=== PATIENT | female | born 2000 | race Two or more races ===

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

== ENCOUNTER 2019-11-21 14:00 | Observation (INO) | payer MEDICAID ==
[~2019-11-21] VITALS: Ht 157.5 cm; Wt 98.4 kg
[2019-11-21] MEDS ORDERED: LACTATED RINGER'S 1,000 ML IV ONE (14:23)
[2019-11-21] MEDS ORDERED: PREN-96 PO (14:30)
[2019-11-21 14:45] LABS: Basophils # (auto) 0.1 10 ^3/uL (0-0.2); Basophils % (auto) 0.6 % (0.0-2.0); Eosinophils # (auto) 0 10 ^3/uL (0-0.8); Eosinophils % (auto) 0.3 % (0.0-7.0); Hematocrit 34.2 % (36.0-46.0); Hemoglobin 11.3 g/dL (12.2-16.2); Lymphocytes # (auto) 0.9 10 ^3/uL (0.4-5.4); Lymphocytes % (auto) 8.2 % (10.0-50.0); Mean Corpuscular Hemoglobin 27.3 pg (28.0-32.0); Mean Corpuscular Hgb Conc. 33.1 g/dL (32.0-36.0); Mean Corpuscular Volume 82.4 fL (80.0-100.0); Monocytes # (auto) 0.7 10 ^3/uL (0-1.3); Neutrophils # (auto) 9.4 10 ^3/uL (1.6-8.6); Neutrophils % (auto) 84.9 % (37.0-80.0); Platelet Count (auto) 262 10^3/uL (140-450); Red Blood Cells 4.15 10^6/uL (4.0-5.20); Red Cell Distribution Width 15.2 % (11.8-14.3); White Blood Cell 11.1 10^3/uL (4.4-10.8)
[2019-11-21 15:00] LABS: Partial Thromboplastin Time 27.3 sec (23.64-32.05)
[2019-11-21 15:09] LABS: Albumin 2.5 g/dL (3.4-5.0); Potassium 3.9 mmol/L (3.5-5.1); Uric Acid 5.2 mg/dL (2.6-6.0)
[2019-11-21 15:12] LABS: BUN/Creatinine Ratio 20.3; Bilirubin, Total 0.9 mg/dL (0.2-1.0); Total Protein 7.2 g/dL (6.4-8.2)
== END 2019-11-21 15:30 | disposition home or self-care (01) | DRG 566 ==
LOC: LDRP 14:00
PROVIDERS: ADMIT Obstetrics & Gynecology; ATTEND Obstetrics & Gynecology
DX: O99.613 Diseases of the digestive system complicating pregnancy, third trimester (principal); K52.9 Noninfective gastroenteritis and colitis, unspecified; Z3A.38 38 weeks gestation of pregnancy
CPT/HCPCS: 36415; 59025; 80053; 81002; 84550; 85025; 85610; 85730; 96360; G0378; 96361

== ENCOUNTER 2019-11-24 09:53 | Observation (INO) | payer MEDICAID ==
[~2019-11-24 09:53] MED LIST: PREN-96 PO
[2019-11-24 11:03] LABS: Protein, Urine 18.2 mg/dL (0.0-11.9)
[2019-11-24 11:05] LABS: 24 Hr. Total Protein, Urine 227.5 mg/24 Hr (<149.1)
== END 2019-11-24 11:16 | disposition home or self-care (01) | DRG 566 ==
LOC: LDRP 09:53
PROVIDERS: ADMIT Obstetrics & Gynecology; ATTEND Obstetrics & Gynecology
DX: O13.3 Gestational [pregnancy-induced] hypertension without significant proteinuria, third trimester (principal); Z3A.38 38 weeks gestation of pregnancy
CPT/HCPCS: 59025; 81002; 84156; G0378

== ENCOUNTER 2019-11-29 12:20 | Observation (INO) | payer MEDICAID ==
[2019-11-29 13:00] LABS: Basophils # (auto) 0.1 10 ^3/uL (0-0.2); Basophils % (auto) 0.5 % (0.0-2.0); Eosinophils # (auto) 0.1 10 ^3/uL (0-0.8); Hemoglobin 11.2 g/dL (12.2-16.2)
[2019-11-29 13:02] LABS: Eosinophils % (auto) 0.7 % (0.0-7.0); Hematocrit 34.6 % (36.0-46.0); Lymphocytes # (auto) 2.2 10 ^3/uL (0.4-5.4); Lymphocytes % (auto) 18.2 % (10.0-50.0); Mean Corpuscular Hemoglobin 26.5 pg (28.0-32.0); Mean Corpuscular Hgb Conc. 32.3 g/dL (32.0-36.0); Mean Corpuscular Volume 82.2 fL (80.0-100.0); Monocytes % (auto) 8.1 % (0.0-12.0); Neutrophils # (auto) 8.7 10 ^3/uL (1.6-8.6); Neutrophils % (auto) 72.5 % (37.0-80.0); Nucleated Red Blood Cells % 0.1 %; Platelet Count (auto) 267 10^3/uL (140-450); Red Blood Cells 4.21 10^6/uL (4.0-5.20); Red Cell Distribution Width 15.8 % (11.8-14.3)
[2019-11-29 13:04] LABS: Urine WBC None Seen /hpf (0 - 5)
[2019-11-29 13:17] LABS: INR 0.95 (0.9-1.15); Partial Thromboplastin Time 26.2 sec (23.64-32.05)
[2019-11-29 13:23] LABS: Urine Bacteria NONE SEEN /hpf (None Seen); Urine Blood Negative /uL (Negative); Urine Specific Gravity 1.005 (1.001-1.035)
[2019-11-29 13:23] LABS: Albumin 2.4 g/dL (3.4-5.0); Calcium 8.6 mg/dL (8.5-10.1); Potassium 4.2 mmol/L (3.5-5.1); Uric Acid 4.5 mg/dL (2.6-6.0)
[2019-11-29 13:26] LABS: BUN/Creatinine Ratio 13.2; Bilirubin, Total 0.4 mg/dL (0.2-1.0); Total Protein 6.7 g/dL (6.4-8.2)
== END 2019-11-29 14:05 | disposition home or self-care (01) | DRG 566 ==
LOC: LDRP 12:20
PROVIDERS: ADMIT Specialist; ATTEND Specialist
DX: O62.9 Abnormality of forces of labor, unspecified (principal); Z3A.39 39 weeks gestation of pregnancy
CPT/HCPCS: 36415; 59025; 80053; 81001; 81002; 84550; 85025; 85610; 85730; G0378

== ENCOUNTER 2019-12-01 15:07 | Observation (INO) | payer MEDICAID | END 2019-12-01 16:55 | disposition home or self-care (01) | DRG 566 | LOC: LDRP 15:07 | PROVIDERS: ADMIT Specialist; ATTEND Specialist | DX: O13.3 Gestational [pregnancy-induced] hypertension without significant proteinuria, third trimester (principal); O62.9 Abnormality of forces of labor, unspecified; Z3A.39 39 weeks gestation of pregnancy | CPT/HCPCS: 59025; 76818; 81002; G0378 ==

== ENCOUNTER 2019-12-03 09:00 | Observation (INO) | payer MEDICAID | END 2019-12-03 10:04 | disposition home or self-care (01) | DRG 566 | LOC: LDRP 09:00 | PROVIDERS: ADMIT Specialist; ATTEND Specialist | DX: O62.9 Abnormality of forces of labor, unspecified (principal); Z3A.39 39 weeks gestation of pregnancy | CPT/HCPCS: 59025; 81002; G0378 ==

== ENCOUNTER 2019-12-03 19:32 | Observation (INO) | payer MEDICAID | END 2019-12-03 21:17 | disposition home or self-care (01) | DRG 566 | LOC: LDRP 19:32 | PROVIDERS: ADMIT Specialist; ATTEND Specialist | DX: O42.92 Full-term premature rupture of membranes, unspecified as to length of time between rupture and onset of labor (principal); O13.3 Gestational [pregnancy-induced] hypertension without significant proteinuria, third trimester; Z3A.39 39 weeks gestation of pregnancy | CPT/HCPCS: 59025; 76815; 81002; 84112; G0378; Q0114 ==

== ENCOUNTER 2019-12-04 09:55 | Inpatient (IN) | payer MEDICAID ==
[~2019-12-04] VITALS: Ht 157.5 cm; Wt 99.8 kg
[2019-12-04] MEDS ORDERED: CARBOPROST TROMETHAMINE 250 MCG/1ML VIAL IM PRN (10:45)
[2019-12-04] MEDS ORDERED: LACTATED RINGER'S 1,000 ML IV SCH (10:45)
[2019-12-04] MEDS ORDERED: LACT. RINGERS/OXYTOCIN 20UNITS 1,000 ML IV SCH (10:45)
[2019-12-04] MEDS ORDERED: DERMOPLAST 60ML BOTTLE TOP PRN (10:45)
[2019-12-04] MEDS ORDERED: BUTORPHANOL TARTRATE 2 MG/1 ML VIAL IV PRN (10:45)
[2019-12-04] MEDS ORDERED: METHYLERGONOVINE MALEATE 0.2 MG/ML AMP IM PRN (10:45)
[2019-12-04] MEDS ORDERED: LIDOCAINE 2%HCL (LOCAL ANESTH.) INJ 20ML MDV ID ONE (10:45)
[2019-12-04] MEDS ORDERED: PHISODERM TOP SOLN 240ML BTL TOP PRN (10:45)
[2019-12-04] MEDS ORDERED: WITCH HAZEL-GLYCERIN PAD TOP PRN (10:45)
[2019-12-04 11:17] LABS: Basophils # (auto) 0.1 10 ^3/uL (0-0.2); Basophils % (auto) 0.7 % (0.0-2.0); Eosinophils # (auto) 0 10 ^3/uL (0-0.8); Hemoglobin 11.3 g/dL (12.2-16.2); Mean Corpuscular Volume 81.7 fL (80.0-100.0)
[2019-12-04 11:19] LABS: Hematocrit 34.6 % (36.0-46.0); Lymphocytes # (auto) 1.4 10 ^3/uL (0.4-5.4); Lymphocytes % (auto) 8.4 % (10.0-50.0); Mean Corpuscular Hemoglobin 26.8 pg (28.0-32.0); Mean Corpuscular Hgb Conc. 32.7 g/dL (32.0-36.0); Monocytes # (auto) 0.8 10 ^3/uL (0-1.3); Monocytes % (auto) 4.5 % (0.0-12.0); Neutrophils % (auto) 86.4 % (37.0-80.0); Platelet Count (auto) 269 10^3/uL (140-450); Red Blood Cells 4.24 10^6/uL (4.0-5.20); Red Cell Distribution Width 15.5 % (11.8-14.3); White Blood Cell 17.3 10^3/uL (4.4-10.8)
[2019-12-04 11:32] LABS: INR 0.96 (0.9-1.15); Partial Thromboplastin Time 26.8 sec (23.64-32.05)
[2019-12-04] MEDS: ceFAZolin 1GM/50ML 50 ML IV SCH ×2 (11:34→19:56)
[2019-12-04 11:37] LABS: Albumin 2.6 g/dL (3.4-5.0); Calcium 8.8 mg/dL (8.5-10.1); Potassium 3.9 mmol/L (3.5-5.1)
[2019-12-04 11:41] LABS: BUN/Creatinine Ratio 16.1; Total Protein 7.2 g/dL (6.4-8.2)
[2019-12-04] MEDS ORDERED: fentaNYL 200mCg/100ml W ROPIVA 100 ML EPI ONE (12:21)
[2019-12-04] MEDS ORDERED: LIDOCAINE HCL 2 %PF INJ 10ML AMP IJ ONE ×2 (12:22→13:00)
[2019-12-04] MEDS ORDERED: ePHEDrine SULFATE 50 MG/ML AMP ONE (12:22)
[2019-12-04] MEDS ORDERED: fentaNYL CITRATE 100 MCG/2 ML VL ONE (12:22)
[2019-12-04] MEDS ORDERED: LACTATED RINGER'S 1,000 ML IV ONE (12:51)
[2019-12-04] MEDS ORDERED: ePHEDrine SULFATE 50 MG/ML AMP IV ONE (13:00)
[2019-12-04] MEDS ORDERED: fentaNYL 200mCg/100ml W ROPIVA 100 ML EPI SCH (13:00)
[2019-12-04] MEDS ORDERED: NALOXONE HCL 0.4 MG/ML VIAL IV ONE (13:00)
[2019-12-04] MEDS ORDERED: fentaNYL CITRATE 100 MCG/2 ML VL IV ONE (13:00)
[2019-12-04] MEDS ORDERED: IBUPROFEN 600 MG TAB PO PRN (16:15)
--- NOTE | 2019-12-04 18:45 | NUR ---
Ambulation: Patient OOB with standby assistance by RN. Patient ambulated to bathroom with steady gait. Patient able to void 300ml without difficulty. [facility]icare teaching provided with returned demonstration by patient. Clean gown provided and bed linen changed. Patient ambulated back to bed with steady gait and no distress noted.
[2019-12-04 19:00] VITALS: BP 135/71
[2019-12-04 21:27] LABS: Urine Bacteria NONE SEEN /hpf (None Seen); Urine Blood 3+ /uL (Negative); Urine Mucus FEW (None Seen); Urine Specific Gravity 1.008 (1.001-1.035); Urine WBC 25 /hpf (0 - 5)
[2019-12-04 21:30] LABS: Alcohol, Urine < 3.0 mg/dL (0-10); Amphetamine Screen, Urine NEGATIVE (NEGATIVE); Barbiturate Scree,Urine NEGATIVE (NEGATIVE); Benzodiazephine Screen, Urine NEGATIVE (NEGATIVE); Cannabinoid Screen, Urine NEGATIVE (NEGATIVE); Cocaine Screen, Urine NEGATIVE (NEGATIVE); Opiate Scree,Urine NEGATIVE (NEGATIVE); Phencyclidine Screen, Urine NEGATIVE (NEGATIVE)
--- NOTE | 2019-12-04 22:00 | NUR ---
second void 500ml
[2019-12-04 23:00] VITALS: BP 133/72
[2019-12-05 03:00] VITALS: BP 119/56
[2019-12-05] MEDS: ceFAZolin 1GM/50ML 50 ML IV SCH (06:05)
[2019-12-05 07:15] VITALS: BP 129/68
[2019-12-05 11:23] VITALS: BP 131/62
[2019-12-05 15:12] VITALS: BP 120/64
[2019-12-05 19:00] VITALS: BP 134/83
[2019-12-05 23:00] VITALS: BP 120/64
[2019-12-06 03:11] VITALS: BP 131/74
[2019-12-06 07:03] VITALS: BP 128/80
--- NOTE | 2019-12-06 09:15 | NUR ---
Discharge: Discharge instructions given as ordered. Pt encouraged to follow up with [employer] as instructed. All questions and concerns addressed. Patient verbalized understanding. Medication reconciliation completed and copy given to patient. Patient encouraged to prepare to depart unit.Discharge: ID bands matched and ID verification form signed and witnessed. One ID band was removed and placed in chart. Infant taken to vehicle, accompanied by staff, mother of baby, and family member along with all personal belongings. secured in rear-facing car seat by parent and verified by staff. No distress or adverse changes in status since initial assessment was noted at time of departure.
== END 2019-12-06 09:13 | disposition home or self-care (01) | DRG 560 ==
LOC: LDRP 09:55 → OBSVTOIN 10:43 → LDRP 17:26
PROVIDERS: ADMIT Specialist; ATTEND Specialist
PROC: 10E0XZZ Delivery of Products of Conception, External Approach (ICD-10-PCS; principal; 2019-12-04)
PROC: 3E0R3BZ Introduction of Anesthetic Agent into Spinal Canal, Percutaneous Approach (ICD-10-PCS; 2019-12-04)
PROC: 00HU33Z Insertion of Infusion Device into Spinal Canal, Percutaneous Approach (ICD-10-PCS; 2019-12-04)
PROC: 0UQGXZZ Repair Vagina, External Approach (ICD-10-PCS; 2019-12-04)
DX: O69.81X0 Labor and delivery complicated by cord around neck, without compression, not applicable or unspecified (principal); O70.0 First degree perineal laceration during delivery; O77.0 Labor and delivery complicated by meconium in amniotic fluid; Z37.0 Single live birth; Z3A.40 40 weeks gestation of pregnancy
CPT/HCPCS: 36415; 59025; 59409; 62282; 80053; 80307; 81001; 81002; 84112; 85025; 85610; 85730; 86592; 86850; 86900; 86901; 94760; 96360; 96361; 96365; G0378; J0690; J2590